=== PATIENT | female | born 1960 | race Caucasian/White ===

== ENCOUNTER → 2020-03-23 14:02 | Outpatient (BNVA) | payer MEDICARE, SELFPAY | PROVIDERS: Visit Provider Family Medicine | DX: M17.12 Unilateral primary osteoarthritis, left knee (principal); M25.562 Pain in left knee | CPT/HCPCS: 73562 ==

== ENCOUNTER 2020-12-20 06:00 | Outpatient (RCR) | payer MEDICARE, SELFPAY | END 2020-12-24 23:59 | disposition home or self-care (01) | LOC: GPT 06:00 | PROVIDERS: PCP Family Medicine; Visit Provider Family Medicine | DX: R53.1 Weakness (principal); Z85.9 Personal history of malignant neoplasm, unspecified; Z91.81 History of falling; R26.89 Other abnormalities of gait and mobility; M25.569 Pain in unspecified knee; M25.661 Stiffness of right knee, not elsewhere classified; M25.662 Stiffness of left knee, not elsewhere classified | CPT/HCPCS: 97162; 97530 ==

== ENCOUNTER 2020-12-25 06:00 | Outpatient (RCR) | payer MEDICARE, SELFPAY | END 2021-01-24 23:59 | disposition home or self-care (01) | LOC: GPT 06:00 | PROVIDERS: PCP Family Medicine; Visit Provider Family Medicine | DX: Z85.9 Personal history of malignant neoplasm, unspecified (principal); Z91.81 History of falling; R26.89 Other abnormalities of gait and mobility; M25.569 Pain in unspecified knee; M25.661 Stiffness of right knee, not elsewhere classified; M25.662 Stiffness of left knee, not elsewhere classified | CPT/HCPCS: 97110; 97112; 97116; 97530 ==

== ENCOUNTER 2021-01-25 06:00 | Outpatient (RCR) | payer MEDICARE, SELFPAY | END 2021-02-23 23:59 | disposition home or self-care (01) | LOC: GPT 06:00 | PROVIDERS: PCP Family Medicine; Visit Provider Family Medicine | DX: R53.1 Weakness (principal) | CPT/HCPCS: 97110; 97112; 97116; 97164; 97530 ==

== ENCOUNTER 2021-02-24 06:00 | Outpatient (RCR) | payer MEDICARE, SELFPAY | END 2021-03-26 23:59 | disposition home or self-care (01) | LOC: GPT 06:00 | PROVIDERS: PCP Family Medicine; Visit Provider Family Medicine | DX: R53.1 Weakness (principal); M25.9 Joint disorder, unspecified; G35 Multiple sclerosis | CPT/HCPCS: 97110; 97112; 97116; 97164; 97530 ==

== ENCOUNTER 2021-03-27 06:00 | Outpatient (RCR) | payer MEDICARE, SELFPAY | END 2021-04-25 23:59 | disposition home or self-care (01) | LOC: GPT 06:00 | PROVIDERS: PCP Family Medicine; Visit Provider Family Medicine | DX: R53.1 Weakness (principal); M62.81 Muscle weakness (generalized) | CPT/HCPCS: 97110; 97112; 97116; 97164; 97530 ==

== ENCOUNTER 2023-02-11 15:51 | Outpatient (CLI) | payer MEDICARE, SELFPAY ==
--- NOTE | 2023-02-11 | MR_ITS ---
WS: [id number] MRI LUMBAR SPINE NONCONTRAST HISTORY: Radiculopathy COMPARISON: None available. TECHNIQUE: Sagittal and axial multisequence imaging is submitted. Moderate increase in thoracic kyphosis. No compression fractures in the thoracic spine. Normal lumbar alignment with no compression fractures or marrow edema. Disc spaces and vertebral body heights are well-preserved. Conus terminates normally at L1-2 disc level. T12-L1: Mild facet arthritis. No stenosis. L1-L2: Mild annular disc bulge with moderate facet and ligamentum flavum arthritis. Facet joint arthr itis encroaches upon the thecal sac. Narrowing of the subarticular recesses. Mild central, bilateral subarticular recess and LEFT foraminal encroachment. L2-L3: Mild annular disc bulging. Ligamentum flavum and facet joint arthritis with marked encroachmen t upon the thecal sac. Severe central, bilateral subarticular recess and minimal foraminal stenosis. L3-L4: Minimal disc bulging. Ligamentum flavum and facet joint arthritis is marked encroaching upon t he thecal sac. Marked central and bilateral subarticular recess stenosis. Mild RIGHT and moderate LEF T foraminal stenosis. Most significant encroachment upon the traversing L4 nerve roots. L4-L5: Mild annular disc bulging with a shallow RIGHT foraminal disc protrusion moderate ligamentum f lavum and facet arthritis. There is moderate central with severe bilateral subarticular recess encroa chment upon the traversing L5 nerve roots. Nerve roots are being deformed. No cyst foraminal stenosis . L5-S1: Broad-based central disc bulging. Mild ligamentum flavum and facet arthritis. LEFT facet joint encroaching upon the subarticular recess and proximal foramen. Moderate to severe LEFT foraminal juanjo nosis. Nerve roots within the thecal sac cephalad of L2-3 are wavy and have increased signal suggesting a ne uritis. IMPRESSION: 1. L2-3 severe central, bilateral subarticular recess and minimal foraminal stenosis 2. L3-4: Severe central, bilateral subarticular recess stenosis with moderate LEFT and mild RIGHT for aminal stenosis. Significant encroachment upon the traversing L4 nerve roots. 3. L4-5 moderate central with severe bilateral subarticular recess encroachment upon the traversing L 5 nerve roots. 4. L5-S1: Moderate to severe LEFT foraminal stenosis with encroachment upon the subarticular recess a nd proximal foramen. 5. L1-2: Mild central, bilateral subarticular recess and LEFT foraminal stenosis.
== END 2023-02-11 15:52 | disposition home or self-care (01) ==
PROVIDERS: PCP Family Medicine; Visit Provider Nurse Practitioner Family
DX: M54.16 Radiculopathy, lumbar region (principal); M48.07 Spinal stenosis, lumbosacral region
CPT/HCPCS: 72148

== ENCOUNTER 2023-04-16 06:00 | Outpatient (RCR) | payer MEDICARE, SELFPAY | END 2023-04-25 23:59 | disposition home or self-care (01) | LOC: GPT 06:00 | PROVIDERS: Visit Provider Family Medicine | DX: M54.59 Other low back pain (principal); G35 Multiple sclerosis; R26.2 Difficulty in walking, not elsewhere classified; R26.81 Unsteadiness on feet | CPT/HCPCS: 97110; 97162; 97530 ==

== ENCOUNTER 2023-04-26 06:00 | Outpatient (RCR) | payer MEDICARE, SELFPAY | END 2023-05-26 23:59 | disposition home or self-care (01) | LOC: GPT 06:00 | PROVIDERS: Visit Provider Family Medicine | DX: M54.59 Other low back pain (principal); G35 Multiple sclerosis; R26.81 Unsteadiness on feet | CPT/HCPCS: 97110; 97112; 97530 ==

== ENCOUNTER 2023-05-27 06:00 | Outpatient (RCR) | payer MEDICARE, SELFPAY | END 2023-06-26 23:59 | disposition home or self-care (01) | LOC: GPT 06:00 | PROVIDERS: Visit Provider Family Medicine | DX: M54.59 Other low back pain (principal); G35 Multiple sclerosis; R26.2 Difficulty in walking, not elsewhere classified; R26.81 Unsteadiness on feet | CPT/HCPCS: 97110; 97112; 97164 ==

== ENCOUNTER 2023-06-27 06:00 | Outpatient (RCR) | payer MEDICARE, SELFPAY | END 2023-07-12 23:59 | disposition home or self-care (01) | LOC: GPT 06:00 | PROVIDERS: Visit Provider Family Medicine | DX: M54.59 Other low back pain (principal); G35 Multiple sclerosis; R26.2 Difficulty in walking, not elsewhere classified; R26.81 Unsteadiness on feet | CPT/HCPCS: 97110 ==

== ENCOUNTER 2024-02-25 06:00 | Outpatient (RCR) | payer MEDICARE, SELFPAY | END 2024-03-26 23:59 | disposition home or self-care (01) | LOC: GPT 06:00 | PROVIDERS: Visit Provider Nurse Practitioner Family | DX: G89.4 Chronic pain syndrome (principal) | CPT/HCPCS: 97162 ==

== ENCOUNTER 2024-03-27 06:00 | Outpatient (RCR) | payer MEDICARE, SELFPAY | END 2024-04-25 23:59 | disposition home or self-care (01) | LOC: GPT 06:00 | PROVIDERS: Visit Provider Nurse Practitioner Family | DX: G89.4 Chronic pain syndrome (principal) | CPT/HCPCS: 97110; 97112; 97530 ==

== ENCOUNTER 2024-04-26 06:00 | Outpatient (RCR) | payer MEDICARE, SELFPAY | END 2024-05-26 23:59 | disposition home or self-care (01) | LOC: GPT 06:00 | PROVIDERS: Visit Provider Nurse Practitioner Family | DX: G89.4 Chronic pain syndrome (principal) | CPT/HCPCS: 97110; 97116; 97164; 97530 ==

== ENCOUNTER 2024-09-24 05:00 | Outpatient (RCR) | payer MEDICARE, SELFPAY | END 2024-10-24 23:55 | disposition home or self-care (01) | LOC: GPT 05:00 | PROVIDERS: Visit Provider Nurse Practitioner Family | DX: G89.4 Chronic pain syndrome (principal) | CPT/HCPCS: 97110; 97162; 97530 ==

== ENCOUNTER 2024-10-25 05:00 | Outpatient (RCR) | payer MEDICARE, SELFPAY | END 2024-11-23 23:59 | disposition home or self-care (01) | LOC: GPT 05:00 | PROVIDERS: Visit Provider Nurse Practitioner Family | DX: G89.4 Chronic pain syndrome (principal) | CPT/HCPCS: 97110; 97112; 97164; 97530 ==

== ENCOUNTER 2024-11-24 05:00 | Outpatient (RCR) | payer MEDICARE, SELFPAY | END 2024-12-24 23:59 | disposition home or self-care (01) | LOC: GPT 05:00 | PROVIDERS: Visit Provider Nurse Practitioner Family | DX: G89.4 Chronic pain syndrome (principal) | CPT/HCPCS: 97110; 97530 ==

== ENCOUNTER 2024-12-25 05:00 | Outpatient (RCR) | payer MEDICARE, SELFPAY | END 2025-01-24 23:59 | disposition home or self-care (01) | LOC: GPT 05:00 | PROVIDERS: Visit Provider Nurse Practitioner Family | DX: G89.4 Chronic pain syndrome (principal) | CPT/HCPCS: 97110; 97530 ==

== ENCOUNTER 2025-01-25 05:00 | Outpatient (RCR) | payer MEDICARE, SELFPAY | END 2025-02-23 23:59 | disposition home or self-care (01) | LOC: GPT 05:00 | PROVIDERS: Visit Provider Nurse Practitioner Family | DX: G89.4 Chronic pain syndrome (principal) | CPT/HCPCS: 97110; 97140; 97530 ==

== ENCOUNTER 2025-03-01 10:04 | Outpatient (RCR) | payer MEDICARE, SELFPAY | END 2025-03-26 23:59 | disposition home or self-care (01) | LOC: GPT 10:04 | PROVIDERS: Visit Provider Nurse Practitioner Family | DX: G89.4 Chronic pain syndrome (principal) | CPT/HCPCS: 97110; 97112; 97530 ==